=== PATIENT | male | born 1950 | race Caucasian/White ===

== ENCOUNTER → 2023-05-23 | Outpatient (RCR) | payer BC, MEDICARE | END | disposition home or self-care (01) | LOC: ONC 10:08 | PROVIDERS: ATTEND Radiology Radiation Oncology | DX: C61 Malignant neoplasm of prostate (principal) | CPT/HCPCS: 76873; G0463; 99205 ==

== ENCOUNTER 2023-07-27 05:28 | Outpatient (CLI) | payer MEDICARE ==
[~2023-07-27] VITALS: Ht 177.8 cm; Wt 119.5 kg
[2023-07-27] MEDS ORDERED: DIPH-1122 PO ×2 (10:29)
[2023-07-27] MEDS ORDERED: ATOR10TA66 PO ×2 (10:29)
[2023-07-27] MEDS ORDERED: AMLO-251 PO ×2 (10:29)
[2023-07-27] MEDS ORDERED: LOSA100T58 PO ×2 (10:29)
[2023-07-27] MEDS ORDERED: AMIO200T65 PO ×2 (10:29)
== END 2023-07-27 10:56 | disposition home or self-care (01) ==
LOC: PREOP 05:28
PROVIDERS: ATTEND Radiology Radiation Oncology
DX: Z01.818 Encounter for other preprocedural examination (principal)

== ENCOUNTER 2023-08-03 08:41 | Day surgery (SDC) | payer MEDICARE ==
[2023-08-03] VITALS (11 sets, daily range): BP systolic 142–161; BP diastolic 85–95
[~2023-08-03] VITALS: Ht 177.8 cm; Wt 119.5 kg
[~2023-08-03 08:41] MED LIST: AMIO200T65 PO; AMLO-251 PO; ATOR10TA66 PO; DIPH-1122 PO; LOSA100T58 PO
--- NOTE | 2023-08-03 09:24 | Progress Note-Pre Operative ---
Pre-Operative Progress Note Date of Available H&P: Jul 27, 2023 Date H&P Reviewed: Aug 03, 2023 Time H&P Reviewed: 09:23 History & Physical: H&P Reviewed, Patient Examed, No changes noted Changes from last HP N/A Pre-Operative Diagnosis: Prostate cancer cT1c, PSA 6.24, Anastacio 7 (4+3) MATILDE MENESES MD Aug 03, 2023 09:24
[2023-08-03] MEDS ORDERED: ACET-11 PO ×2 (09:27)
[2023-08-03] MEDS ORDERED: CIPR-226 PO ×2 (09:27)
[2023-08-03] MEDS ORDERED: LACTATED RINGERS 1,000 ML 1,000 ML IV PRN (09:30)
--- NOTE | 2023-08-03 09:31 | Discharge Inst-Simple/Standard ---
Discharge Inst-Standard Reconcile Patient Problems Problems Reviewed?: Yes Discharge Medications New, Converted or Re-Newed RX: Other (scripts called to [facility] in [place] on 07/27/23 per pt request) Patient Instructions/Follow Up Plan of Care/Instructions/FU: 1) One month post implant scan at [facility] cancer center 08/31/23 at 11:00 a.m. 2) One month post op follow up with urologist Dr. Hannon 09/05/23 at 1:00 p.m. Activity as Tolerated: Yes Discharge Diet: No Restrictions Other Inst to Patient Please instruct patient on mcfarland catheter care and instruct patient on mcfarland catheter removal for Tuesday08/08/23 in morning. Planned Outpatient Orders/Ref. N/A MATILDE MENESES MD Aug 03, 2023 09:31
[2023-08-03] MEDS ORDERED: fentaNYL INJECTION 100 MCG/2 ML VIAL ONE (11:24)
[2023-08-03] MEDS ORDERED: proPOfol INJECTION 200 MG/20 ML VIAL IV ONE ×2 (11:24→11:49)
[2023-08-03] MEDS ORDERED: ONDANSETRON INJECTION 4 MG/2 ML (SDV) ONE (11:24)
[2023-08-03] MEDS ORDERED: BACITRACIN OINTMENT 28 GM TUBE ONE (11:24)
[2023-08-03] MEDS ORDERED: LIDOCAINE PF 2% 5 ML VIAL ONE (11:24)
[2023-08-03] MEDS ORDERED: SEVOFLURANE (ULTANE) 15 ML INHAL SOLN ONE (11:24)
[2023-08-03] MEDS ORDERED: dexAMETHasone INJ 10 MG/ML 1 ML VIAL ONE (12:25)
--- NOTE | 2023-08-03 12:53 | Anesthesia-General Post-Op ---
General Patient Condition Mental Status/LOC: Same as Preop Cardiovascular: Satisfactory Nausea/Vomiting: Absent Respiratory: Satisfactory Pain: Controlled Complications: Absent Post Op Complications Complications None Follow Up Care/Instructions Patient Instructions None needed. Anesthesia/Patient Condition Patient Condition Patient is doing well, no complaints, stable vital signs, no apparent adverse anesthesia problems. No complications reported per nursing. YAYO SAMUELS CRNA Aug 03, 2023 12:53
[2023-08-03] MEDS ORDERED: fentaNYL INJECTION 100 MCG/2 ML VIAL IVP ONE (13:00)
[2023-08-03] MEDS ORDERED: ONDANSETRON INJECTION 4 MG/2 ML (SDV) IVP PRN (13:00)
--- NOTE | 2023-08-03 13:06 | Progress Note-Post Operative ---
Post-Operative Progess Note Surgeon (s)/Doctor Podiatric Medicine (s) Surgeon MATILDE MENESES MD Doctor Podiatric Medicine: Tamera ALONSO MD Pre-Operative Diagnosis Prostate cancer cT1c, PSA 6.24, Anastacio 7 (4+3) Post-Operative Diagnosis Same as pre op Procedure & Operative Findings Date of Procedure 08/03/23 Procedure Performed/Findings (1) 67% Cesium 131 permanent prostate seed implant (2) Injection of biodegradable prostate-rectal spacer utilizing the Barrigel system under ultrasound guidance (3) Cystogram Prostate volume 57 cc Anesthesia Type General Estimated Blood Loss Estimated blood loss (mL): Minimal Specimens/Packing Specimens Removed None Packing: None MATILDE MENESES MD Aug 03, 2023 13:05
--- NOTE | 2023-08-03 15:16 | Diagnostic Imaging Report ---
Indication: Brachial therapy. Fluoroscopic guidance. Comparison: None Total fluoroscopy time: 11 seconds Total number fluoroscopic images saved: 1 Findings: Fluoroscopic guidance was provided intraoperatively during prostatic brachytherapy. Image provided shows metallic beads projecting over the region of the prostate. Interpreting radiologist was not present during the procedure. IMPRESSION: 1. Fluoroscopic guidance provided intraoperatively. Dictated by: Dictated on workstation # [id number]
== END 2023-08-03 15:00 | disposition home or self-care (01) ==
LOC: SDC 08:41
PROVIDERS: ATTEND Radiology Radiation Oncology
DX: C61 Malignant neoplasm of prostate (principal); E66.01 Morbid (severe) obesity due to excess calories; Z68.37 Body mass index [BMI] 37.0-37.9, adult
CPT/HCPCS: 55874; 55875; 76000; 76965; 77290; 77318; 77332; 77370; 77470; 77778; 87081; C2643

== ENCOUNTER 2023-09-21 09:57 | Outpatient (RCR) | payer MEDICARE ==
[~2023-09-21 09:57] MED LIST changes: +ACET-11 PO; +CIPR-226 PO
== END 2023-09-22 | disposition home or self-care (01) ==
LOC: ONC 09:57
PROVIDERS: ATTEND Radiology Radiation Oncology
DX: C61 Malignant neoplasm of prostate (principal)
CPT/HCPCS: 77290